=== PATIENT | female | born 1995 | race American Indian/Alaskan Native ===

== ENCOUNTER 2019-05-11 12:37 | Emergency (ER) | payer MEDICAID ==
[2019-05-11 12:59] VITALS: BP 105/70
--- NOTE | 2019-05-11 13:08 | Emergency Department Report ---
Chief Complaint: Rectal Pain Stated Complaint: RECTAL BLEEDING - HPI History of Present Illness: 23 y/o female comes in for constipation. Taking iron daily. Reports that she has is taking iron daily. Patient reports rectal pain when she tries to push stool out. Has no had a stool in over 5 days. Denies any abdominal pain. Reports blood on toilet paper. - Exam Vital Signs: Vital Signs 05/11/19 12:57 Temperature 98.3 F Pulse Rate 108 H Respiratory 20 Rate Blood Pressure 105/70 O2 Sat by Pulse 96 Oximetry Physical Exam: Alert and oriented times three no abdominal distention or pain. MSE screening note: Focused history and physical exam performed. Due to findings the following was ordered: Discussed with patient to try OTC miralax , stool softener. ED Disposition for MSE Clinical Impression: Constipation due to pain medication Disposition: DC-01 TO HOME OR SELFCARE Is pt being admited?: No Does the pt Need Aspirin: No Condition: Stable Instructions: High Fiber Diet (ED)
== END 2019-05-11 12:40 | disposition home or self-care (01) ==
LOC: ED 12:37
DX: K59.03 Drug induced constipation (principal)